=== PATIENT | female | born 1995 | race Two or more races ===

== ENCOUNTER 2018-04-20 12:22 | Emergency (ER) | payer OTHER ==
[~2018-04-20] VITALS: Ht 162.6 cm; Wt 81.6 kg
[2018-04-20 12:25] VITALS: BP 137/84
== END 2018-04-20 13:10 | disposition home or self-care (01) ==
LOC: ER 12:28
DX: S13.4XXA Sprain of ligaments of cervical spine, initial encounter (principal); S09.8XXA Other specified injuries of head, initial encounter; V49.59XA Passenger injured in collision with other motor vehicles in traffic accident, initial encounter; Y93.89 Activity, other specified; Y92.413 State road as the place of occurrence of the external cause; Y99.8 Other external cause status
CPT/HCPCS: A4606; Z7610